=== PATIENT | male | born 1955 | race Caucasian/White ===

== ENCOUNTER 2017-03-21 12:54 | Emergency (ER) | payer OTHER ==
[~2017-03-21] VITALS: Ht 180.3 cm; Wt 77.3 kg
[2017-03-21 14:38] VITALS: BP 128/82
== END 2017-03-21 14:39 | disposition home or self-care (01) ==
LOC: EMS 12:56
DX: K04.7 Periapical abscess without sinus (principal); K02.9 Dental caries, unspecified; K08.89 Other specified disorders of teeth and supporting structures
CPT/HCPCS: 99283